=== PATIENT | female | born 1955 | race African-American/Black ===

== ENCOUNTER 2017-03-09 06:20 | Day surgery (SDC) | payer OTHER ==
[~2017-03-09 06:20] MED LIST: ABACAVIR-LAMIV1 EAC1 PO; AMILORIDE HCL5 M1 PO; COREG6.25 M1 PO; COZAAR50 M1 PO; GLUCOPHAGE XR500 M1 PO; HUMALOG MI100 UNITS1 SC; HYDROMET PO; LEVEMIR100 UNITS/ SC; NORVASC10 M2 PO; SPIRIVA18 MC1 INH; TRAZODONE HCL50 M1 PO; VITAMIN D31000 UNI3 PO; ZOFRAN ODT4 MG PO
[2017-03-09 07:04] LABS: BASO % 0.8 % (0-2); BASO ABSOLUTE COUNT 0.1 tho/cmm (0.0-0.2); EOS % 10.1 % (0-7); EOSINOPHIL ABSOLUTE COUNT 0.6 tho/cmm (0.0-0.7); HCT-HEMATOCRIT 27.4 % (34.0-49.0); HGB-HEMOGLOBIN 9.5 gm/dl (12.0-15.5); IMMATURE GRANULOCYTES ABSOLUTE 0.01 tho/cmm (0-0.03); IMMATURE GRANULOCYTES PERCENT 0.2 % (0-0.3); LYMPH % 30.7 % (20-45); LYMPH ABSOLUTE COUNT 1.9 tho/cmm (0.8-4.5); MCH (MEAN CORPUSCULAR HGB) 36.1 pg (28.0-32.0); MCHC MEAN CORPUSCULAR HGB CONC 34.7 % (32.0-36.0); MCV (MEAN CELL VOLUME) 104.2 fl (82.0-96.0); MONO % 7.8 % (0-12); MONOCYTE ABSOLUTE COUNT 0.5 tho/cmm (0.0-1.2); NEUTROPHIL ABSOLUTE COUNT 3.2 tho/cmm (1.6-8.0); NEUTROPHIL-AUTOMATED 3.2 tho/cmm (1.6-8.0); NEUTROPHILS % 50.4 % (40-80); PLATELET COUNT 283 tho/cmm (150-450); RED BLOOD COUNT 2.63 mil/cmm (4.00-5.20); RED CELL DISTRIBUTION WIDTH 11.9 % (12.4-16.4); WHITE BLOOD COUNT 6.3 tho/cmm (4.0-10.0)
--- NOTE | 2017-03-09 22:47 | NUR ---
VIRTUAL CARE NOTE: PT. IN BED WITH DAUGHTER AT HER SIDE. STATES IS DOING WELL AND PAIN IS TOLERABLE. STATES "I HAVE THIS GAS AT TIMES" EDUCATION PROVIDED REGARDING GAS USED FOR LAPAPRSCOPIC PROCEEDURE AND HOW IT WILL ABSORBED. ALSO EDUCATION GIVEN ON HOW TO IMPROVE THE GAS PAIN BY AMBULATION. INSTRUCTED TO CALL FOR FURTHER NEEDS. STATES VERBAL UNDERSTANDING.
[2017-03-10] MEDS ORDERED: NORCO 5-325 TA1 EACH PO (12:08)
--- NOTE | 2017-03-10 13:52 | NUR ---
[facility]N DISCHARGE NOTE-DID DISCHARGE TEACHING ON THE DISMISSAL INSTRUCTIONS. PATIENT HAD NO FURTHER QUESTIONS OR CONCERNS AND WAS ABLE TO DO TEACHBACK SUCCESSFULLY.
== END 2017-03-10 14:12 ==
LOC: SRG 06:20 → SHSB 06:23 → ORW 09:12 → PACU 10:45 → 5WD 12:14
PROVIDERS: Anesthesiology; Colon & Rectal Surgery
PROC: 0FT44ZZ Resection of Gallbladder, Percutaneous Endoscopic Approach (ICD-10-PCS; principal; 2017-03-09)
DX: K80.10 Calculus of gallbladder with chronic cholecystitis without obstruction (principal); I10 Essential (primary) hypertension; E11.9 Type 2 diabetes mellitus without complications; J44.9 Chronic obstructive pulmonary disease, unspecified; Z21 Asymptomatic human immunodeficiency virus [HIV] infection status; Z79.4 Long term (current) use of insulin; Z79.84 Long term (current) use of oral hypoglycemic drugs; Z79.899 Other long term (current) drug therapy; Z88.2 Allergy status to sulfonamides; Z88.8 Allergy status to other drugs, medicaments and biological substances; Z87.891 Personal history of nicotine dependence; Z98.890 Other specified postprocedural states
CPT/HCPCS: J0690; J1815; J2270; J2405; J2550; J3010; J7030